=== PATIENT | female | born 1950 | race Caucasian/White ===

== ENCOUNTER 2017-07-30 07:06 | Emergency (ER) | payer OTHER ==
[~2017-07-30] VITALS: Ht 152.4 cm; Wt 72.6 kg
[2017-07-30] MEDS ORDERED: KETOROLAC TROMETHAMINE 30 MG/ML VIAL IV STA (07:28)
[2017-07-30] MEDS ORDERED: SODIUM CHLORIDE 0.9% 1000ML 1,000 ML IV STA (07:28)
[2017-07-30] MEDS ORDERED: MORPHINE SULFATE 2 MG/ML SYR IV STA (07:28)
[2017-07-30] MEDS ORDERED: ONDANSETRON HCL 4 MG ORAL DISINTEGRATING TAB PO ONE (07:30)
[2017-07-30 07:37] LABS: BASOPHILS % 0.3 % (0.0-1.0); EOSINOPHILS # (AUTO) 0.1 (0.0-0.4); EOSINOPHILS % 1.3 % (0.0-6.0); HEMATOCRIT 36.2 % (34.2-44.1); LYMPHOCYTES # (AUTO) 1.7 (1.0-3.2); LYMPHOCYTES % 17.4 % (18.0-39.1); MEAN CORPUSCULAR HEMOGLOBIN 29.9 pg (28-32); MEAN CORPUSCULAR HGB CONC 33.1 g/dL (31-35); MEAN CORPUSCULAR VOLUME 90.3 fL (81-99); MONOCYTES # (AUTO) 0.6 (0.2-0.8); MONOCYTES % 5.9 % (4.4-11.3); NEUTROPHILS # (AUTO) 7.4 (2.1-6.9); NEUTROPHILS % 74.6 % (38.7-80.0); PLATELET COUNT 220 x10e3/uL (140-360); RED BLOOD COUNT 4.01 x10e6/uL (3.6-5.1); RED CELL DISTRIBUTION WIDTH 13.6 % (11.7-14.4)
[2017-07-30 07:44] LABS: BILIRUBIN,URINE NEGATIVE (NEGATIVE); CLARITY,URINE CLEAR (CLEAR); COLOR,URINE YELLOW (YELLOW); KETONES,URINE NEGATIVE (NEGATIVE); LEUKOCYTE ESTERASE ,URINE NEGATIVE (NEGATIVE); NITRITE,URINE NEGATIVE (NEGATIVE); PROTEIN,URINE DIPSTICK NEGATIVE (NEGATIVE); URINE UROBILINOGEN 0.2 mg/dL (0.2 - 1)
[2017-07-30 07:57] LABS: ALANINE AMINOTRANSFERASE 23 IU/L (0-55); ALBUMIN 4.1 g/dL (3.5-5.0); ALBUMIN/GLOBULIN RATIO 1.4 (0.8-2.0); ALKALINE PHOSPHATASE 65 IU/L (40-150); AMYLASE 45 U/L (25-125); ANION GAP 12.6 mmol/L (8-16); BLOOD UREA NITROGEN 16 mg/dL (7-26); BUN/CREATININE RATIO 21 (6-25); CALCIUM 9.5 mg/dL (8.4-10.2); CARBON DIOXIDE 28 mmol/L (22-29); CHLORIDE 101 mmol/L (98-107); CREATININE, SERUM 0.76 mg/dL (0.57-1.11); EST GLOMERULAR FILTRATION RATE > 60 ML/MIN (60-); GLUCOSE 108 mg/dL (74-118); LIPASE 26 U/L (8-78); POTASSIUM 3.6 mmol/L (3.5-5.1); SODIUM 138 mmol/L (136-145)
[2017-07-30 08:02] LABS: BACTERIA,URINE RARE /HPF; EPITHELIAL CELLS,URINE FEW /LPF; TRANSITIONAL EPI CELLS,URINE RARE; WBC,URINE (MAN) 0-5 /HPF (0-5)
[2017-07-30] MEDS ORDERED: AMLODIPINE BESY10 MG PO (08:31)
[2017-07-30] MEDS ORDERED: LISINOPRIL-HCT1 EACH PO (08:31)
[2017-07-30] MEDS ORDERED: MOTRIN800 MG PO (08:31)
--- NOTE | 2017-07-30 08:45 | Diagnostic Imaging Report ---
CT scan abdomen and pelvis. 07/30/2017 Clinical history: Right flank pain Technique: Volumetric CT abdomen and pelvis according to the institutional renal stone protocol. No intravenous or enteric contrast. Coronal, sagittal and axial images generated from source data. Dose: 544.68 mGy-cm Comparison: None Findings: Clear lung bases. No pleural effusions. Mild cardiomegaly with trace pericardial effusion. Liver: Normal Gallbladder: Normal Pancreas: Normal Spleen: Normal Adrenal glands: Normal Urinary bladder: Normal Uterus and adnexa: Hysterectomy Kidneys: Right: 0.7 x 0.6 cm x 0.4 cm proximal ureteral stone with resulting severe hydronephrosis. An additional 0.3 cm stone is present above the 7 mm stone. Multifocal right Rickels plaques. Left: No focal nephrolithiasis. Hyperattenuating renal pyramids and papilla. No hydronephrosis. Bowel: Normal caliber. Peritoneum: Normal Skeleton: Intact. L5-S1 degenerative disc disease, with complete loss of disc space height. Bilateral L4-L5 facet arthropathy. Right hip arthroplasty. Soft tissues: Normal Impression: 0.7 x 0.6 cm stone in the proximal right ureter with obstruction and resulting severe hydronephrosis.. This report was generated with voice-recognition technology. Errors in manager of project management can occur. Please interpret accordingly and contact a radiologist if there are any questions regarding the report. Signed by: Dr. Josh Aaron M.D. on 07/30/2017 8:41 AM
[2017-07-30 10:53] VITALS: BP 131/71
== END 2017-07-30 11:16 | disposition home or self-care (01) ==
LOC: ER 07:06
DX: N13.2 Hydronephrosis with renal and ureteral calculous obstruction (principal); I10 Essential (primary) hypertension; E78.5 Hyperlipidemia, unspecified
CPT/HCPCS: 36415; 74176; 80053; 81001; 82150; 83690; 85025; 93005; 99284; J1885; J2270; J7030

== ENCOUNTER 2021-02-10 00:32 | Emergency (ER) | payer MEDICARE, OTHER ==
[~2021-02-10] VITALS: Ht 152.4 cm; Wt 72.6 kg
[~2021-02-10 00:32] MED LIST: AMLODIPINE BESY10 MG PO; LISINOPRIL-HCT1 EACH PO; MOTRIN800 MG PO
[2021-02-10] MEDS ORDERED: LIDOCAINE HCL 1% LOCAL INJ 20 ML VIAL INJ ONE (00:45)
[2021-02-10] MEDS ORDERED: LIDOCAINE HCL 1% LOCAL INJ 20 ML VIAL ONE (00:48)
[2021-02-10] MEDS ORDERED: ACETAMINOPHEN-1 EAC4 PO (01:20)
[2021-02-10] MEDS ORDERED: CEPHALEXIN500 MG PO (01:47)
== END 2021-02-10 01:20 | disposition home or self-care (01) ==
LOC: ER 00:38
DX: B35.1 Tinea unguium (principal); S90.211A Contusion of right great toe with damage to nail, initial encounter; W20.8XXA Other cause of strike by thrown, projected or falling object, initial encounter; Y92.89 Other specified places as the place of occurrence of the external cause
CPT/HCPCS: 11730; 73660; 99283; J2001

== ENCOUNTER 2022-12-19 10:21 | Emergency (ER) | payer MEDICARE, OTHER ==
[~2022-12-19] VITALS: Ht 152.4 cm; Wt 72.6 kg
[~2022-12-19 10:21] MED LIST changes: +ACETAMINOPHEN-1 EAC4 PO; +CEPHALEXIN500 MG PO
[2022-12-19 10:43] VITALS: O2SAT 98
[2022-12-19] MEDS ORDERED: PAXLOVID 150-11 EACH PO (10:53)
== END 2022-12-19 11:28 | disposition home or self-care (01) ==
LOC: ER 10:31
DX: R05.9 Cough, unspecified (principal); U07.1 COVID-19; I10 Essential (primary) hypertension; E78.5 Hyperlipidemia, unspecified; Z87.442 Personal history of urinary calculi
CPT/HCPCS: 99282